=== PATIENT | female | born 1930 | race Caucasian/White ===

== ENCOUNTER 2017-07-18 15:00 | Inpatient (IN) | payer OTHER ==
[~2017-07-18] VITALS: Ht 160 cm; Wt 70.3 kg
[~2017-07-18 15:00] MED LIST: APAP650 PO; BAYER CHEWABLE81 MG PO; CALCIUM 500 +1 EAC6 PO; CARVEDILOL6.25 MG PO; COREG12.5 MG PO; FISH OIL 1,001000 M2 PO; LOSARTAN POTASS50 MG PO; NORVASC5 MG PO; PRADAXA150 MG PO; PRILOSEC 20 MG20 MG PO; SERTRALINE HCL50 MG PO; SIMVASTATIN40 MG PO
[2017-07-18 15:14] VITALS: BP 171/108
[2017-07-18 15:54] LABS: ABSOLUTE BASOPHILS 0.1 thou/uL (0.0-0.2); ABSOLUTE EOSINOPHILS 0.2 thou/uL (0.0-0.7); ABSOLUTE LYMPHOCYTES 1.9 thou/uL (0.8-5.3); ABSOLUTE MONOCYTES 0.8 thou/uL (0.0-1.2); ABSOLUTE NEUTROPHILS 3.8 thou/uL (1.6-8.1); BASOPHILS 0.8 %; EOSINOPHILS 3.3 %; HEMATOCRIT 42.9 % (37.0-47.0); HEMOGLOBIN 14.1 gm/dL (12.0-15.0); LYMPHOCYTES 27.8 %; MCH 30.5 pg (26.0-34.0); MCHC 32.8 g/dL (28.0-37.0); MCV 93.2 fL (80.0-100.0); MONOCYTES 11.4 %; MPV 10.1 fl. (7.2-11.1); NUCLEATED RBCS 0 /100WBC; PLATELET COUNT* 182 thou/uL (150-400); POLYS 56.7 %; RDW-CV 14.6 % (10.5-14.5); WBC 6.7 thou/uL (4.0-11.0)
[2017-07-18 15:56] LABS: INR 1.3; PROTIME 12.7 Seconds (9.20-11.50)
[2017-07-18 15:59] LABS: URINE BILIRUBIN NEGATIVE (Negative); URINE BLOOD 3+ (Negative); URINE CLARITY CLEAR; URINE COLOR YELLOW; URINE GLUCOSE-RANDOM NEGATIVE (Negative); URINE KETONES NEGATIVE (Negative); URINE LEUKOCYTES-REFLEX NEGATIVE (Negative); URINE NITRITE-REFLEX NEGATIVE (Negative); URINE PROTEIN NEGATIVE (Negative); URINE UROBILINOGEN 0.2 E.U./dl (0.2-1.0)
[2017-07-18 16:06] LABS: BACTERIA-REFLEX None Seen /HPF (None Seen); CASTS None Seen /LPF (None Seen); CRYSTALS None Seen /LPF (None Seen); SQUAMOUS 4-10 Moderate /LPF (0-3); URINE WBC-REFLEX None Seen /HPF (0-5)
[2017-07-18 17:23] LABS: ANION GAP 8 mmol/L (7-16); BUN 17 mg/dL (7-18); CALCIUM 9.6 mg/dL (8.5-10.1); CHLORIDE 104 mmol/L (98-107); CO2 27 mmol/L (21-32); CREATININE 0.8 mg/dL (0.6-1.3); GLUCOSE 112 mg/dL (70-99); POTASSIUM 3.9 mmol/L (3.5-5.1); SODIUM 139 mmol/L (136-145)
[2017-07-18 17:33] LABS: ALBUMIN 3.8 g/dL (3.4-5.0); ALKALINE PHOSPHATASE 80 U/L (46-116); LIPASE 74 U/L (73-393); NT-PRO BRAIN NAT PEPTIDE 2113 pg/mL (<300); SGOT 21 U/L (15-37); SGPT 22 U/L (30-65); TOTAL BILIRUBIN 0.7 mg/dL (<0.1-1.0); TOTAL PROTEIN 7.3 g/dL (6.4-8.2); TROPONIN-I LEVEL <0.06 ng/mL (<0.06)
[2017-07-18 19:46] VITALS: BP 138/75
[2017-07-18 20:00] VITALS: BP 149/82
[2017-07-18] MEDS ORDERED: METFORMIN HCL500 MG PO (20:52)
[2017-07-19 00:24] VITALS: BP 150/85
[2017-07-19 08:45] VITALS: BP 170/92
--- NOTE | 2017-07-19 11:20 | EKG ---
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
[2017-07-19 12:00] VITALS: BP 147/85
--- NOTE | 2017-07-19 15:42 | 2DMMODE ---
[place] [address] 2 D/M-MODE ECHOCARDIOGRAM Name: TRA PARKER Room: [address] IN [facility]#: [id number] Admission: 07/18/17 Attend Phys: Stormy Grace, Discharge: Date of : [birth year] Date of Service: 07/19/17 1541 Report #: [id number] THIS REPORT FOR: //name// APPROVED REPORT Study performed: 07/19/2017 13:58:37 EXAM: Comprehensive 2D, Doppler, and color-flow Echocardiogram Patient Location: In-Patient Room #: 218 Status: routine BSA: 1.73 HR: 66 bpm BP: 150/85 mmHg Rhythm: NSR Other Information Study Quality: Good Indications Atrial Fibrillation 2D Dimensions LVEF(%): 73.08 (>50%) IVSd: 11.37 (7-11mm) LVOT Diam: 18.02 (18-24mm) LVDd: 37.66 mm PWd: 10.45 (7-11mm) Ascending Ao: 32.44 (22-36mm) LVDs: 22.06 (25-40mm) Aortic Root: 29.17 mm Taylor's LVEF: 73.08 % Volumes Left Atrial Volume (Systole) LA ESV Index: 44.00 mL/m2 Aortic Valve AoV Peak Morgan.: 1.17 m/s AO Peak Gr.: 5.51 mmHg LVOT Max P.42 mmHg AO Mean Gr.: 2.95 mmHg LVOT Mean P.41 mmHg LVOT Max V: 0.92 m/s AO V2 VTI: 24.48 cm LVOT Mean V: 0.54 m/s RICO (VTI): 1.83 cm2 LVOT V1 VTI: 17.60 cm Mitral Valve MV Decel. Time: 105.81 [place] [address] 2 D/M-MODE ECHOCARDIOGRAM Name: TRA PARKER Room: [address] IN [facility]#: [id number] Admission: 07/18/17 Attend Phys: Stormy Grace, Discharge: Date of : [birth year] Date of Service: 07/19/17 1541 Report #: [id number] MV PHT: 30.68 ms MVA (PHT): 7.17 cm2 TDI Medial E' Morgan.: 0.09 m/s Lateral E' Morgan.: 0.11 m/s Pulmonary Valve PV Peak Morgan.: 0.74 m/s PV Peak Gr.: 2.20 mmHg Tricuspid Valve TR Peak Gr.: 29.45 mmHg RVSP: 34.00 mmHg Left Ventricle The left ventricle is normal size. There is normal LV segmental wall motion. There is normal left ventricular wall thickness. Left ventricular systolic function is normal. The left ventricular ejection fraction is within the normal range. LVEF is 60-65%. This study is not technically sufficient to allow evaluation of the LV diastolic function due to atrial fibrillation. Right Ventricle Right ventricle is mildly dilated. Right ventricle is mildly hypokinetic. Atria Left atrium is moderately dilated. Right atrium is mildly dilated. Aortic Valve Mild aortic valve sclerosis. No aortic regurgitation is present. There is no aortic valvular stenosis. Mitral Valve The mitral valve is normal in structure. Moderate mitral regurgitation. No evidence of mitral valve stenosis. Tricuspid Valve The tricuspid valve is normal in structure. Mild tricuspid regurgitation. The RVSP is 40 mmHg. Pulmonic Valve The pulmonary valve is normal in structure. Trace pulmonic regurgitation[place] [address] 2 D/M-MODE ECHOCARDIOGRAM Name: TRA PARKER Room: [address] IN [facility]#: [id number] Admission: 07/18/17 Attend Phys: Stormy Grace, Discharge: Date of : [birth year] Date of Service: 07/19/17 1541 Report #: [id number] The aortic root is normal in size. IVC is normal in size and collapses with >50% inspiration Pericardium There is no pericardial effusion. <Conclusion> LVEF is 60-65%. Right ventricle is mildly dilated. Left atrium is moderately dilated. Right atrium is mildly dilated. Mild aortic valve sclerosis. Moderate mitral regurgitation. Mild tricuspid regurgitation. The RVSP is 40 mmHg. <ELECTRONICALLY SIGNED> By: hKris Bunn MD, FACC 07/19/17 1541 1541 154 Khris Bunn MD, FACC /INF
[2017-07-19 16:00] VITALS: BP 166/95
[2017-07-19 20:00] VITALS: BP 159/85
[2017-07-20] VITALS: BP 127/80
[2017-07-20 02:10] LABS: GLYCOHEMOGLOBIN (HGB A1C) 5.8 % (4.8-5.6)
[2017-07-20 04:38] VITALS: BP 134/80
[2017-07-20 05:35] LABS: CHOLESTEROL 123 mg/dL (<200); HDL CHOLESTEROL 87 mg/dL (>40); LDL CHOLESTEROL 24 mg/dL (<100); TC:HDL 1.4 Ratio (Not establshd); TRIGLYCERIDE 63 mg/dL (<150); VLDL 13 mg/dL (<40)
[2017-07-20 05:57] LABS: SERUM ASSESSMENT Clear
[2017-07-20 07:54] VITALS: BP 142/86
[2017-07-20 10:03] VITALS: BP 142/86
[2017-07-20] MEDS ORDERED: ASPIR 8181 MG PO ×2 (10:53)
== END 2017-07-20 11:25 | disposition home or self-care (01) | DRG 309 ==
LOC: M.ERS 15:00 → M.2W 17:43 → M.TBA-ER 17:43 → M.2W 19:50
PROVIDERS: Emergency Medicine; Internal Medicine; ADMIT Internal Medicine
DX: I48.91 Unspecified atrial fibrillation (principal); I16.1 Hypertensive emergency; M48.00 Spinal stenosis, site unspecified; E11.9 Type 2 diabetes mellitus without complications; I69.322 Dysarthria following cerebral infarction; Z79.01 Long term (current) use of anticoagulants; Z79.82 Long term (current) use of aspirin; Z79.899 Other long term (current) drug therapy; Z98.890 Other specified postprocedural states

== ENCOUNTER 2017-07-20 16:48 | Inpatient (IN) | payer OTHER ==
[~2017-07-20] VITALS: Ht 160 cm; Wt 65.2 kg
[~2017-07-20 16:48] MED LIST changes: +ASPIR 8181 MG PO; +METFORMIN HCL500 MG PO
[2017-07-20 16:49] VITALS: BP 148/91
[2017-07-20 17:29] LABS: ABSOLUTE EOSINOPHILS 0.1 thou/uL (0.0-0.7); ABSOLUTE LYMPHOCYTES 1.4 thou/uL (0.8-5.3); ABSOLUTE MONOCYTES 0.8 thou/uL (0.0-1.2); BASOPHILS 0.5 %; HEMATOCRIT 45.7 % (37.0-47.0); HEMOGLOBIN 14.9 gm/dL (12.0-15.0); LYMPHOCYTES 18.5 %; MCH 30.3 pg (26.0-34.0); MCHC 32.6 g/dL (28.0-37.0); MONOCYTES 11.3 %; MPV 10.1 fl. (7.2-11.1); NUCLEATED RBCS 0 /100WBC; PLATELET COUNT* 183 thou/uL (150-400); POLYS 67.7 %; RBC 4.92 mil/uL (4.20-5.00); RDW-CV 14.4 % (10.5-14.5); WBC 7.3 thou/uL (4.0-11.0)
[2017-07-20 17:37] LABS: INR 1.4; PROTIME 13.3 Seconds (9.20-11.50)
[2017-07-20 17:38] LABS: ANION GAP 8 mmol/L (7-16); BUN 18 mg/dL (7-18); CHLORIDE 101 mmol/L (98-107); CO2 27 mmol/L (21-32); CREATININE 0.9 mg/dL (0.6-1.3); GLUCOSE 131 mg/dL (70-99); SODIUM 136 mmol/L (136-145)
[2017-07-20 17:45] LABS: ALBUMIN 3.7 g/dL (3.4-5.0); ALKALINE PHOSPHATASE 87 U/L (46-116); SGOT 18 U/L (15-37); SGPT 20 U/L (30-65); TOTAL BILIRUBIN 0.6 mg/dL (<0.1-1.0); TOTAL PROTEIN 7.2 g/dL (6.4-8.2); TROPONIN-I LEVEL <0.06 ng/mL (<0.06)
[2017-07-20 18:42] VITALS: BP 133/95
[2017-07-20 20:00] VITALS: BP 132/70
[2017-07-21] VITALS: BP 144/81
[2017-07-21 03:58] VITALS: BP 142/76
[2017-07-21 08:00] VITALS: BP 154/99
--- NOTE | 2017-07-21 10:33 | EKG ---
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1930 Requested By: Adam Constantino Order Number: [id number] MD: Khris Bunn Measurements Intervals [place] Rate: 84 P: [place]: QRS: 47 QRSD: 138 T: -37 QT: 386 QTc: 457 Interpretive Statements Atrial fibrillation Right bundle branch block Baseline wander in lead(s) V2,V3 Compared to ECG 07/18/2017 15:45:36 No significant changes Electronically Signed On 07-21-2017 10:32:59 CDT by Khris Bunn [email or web address] <ELECTRONICALLY SIGNED> By: Khris Bunn MD, [facility] 07/21/17 1032 1655 1655 Khris Bunn MD, [facility] /EPI
[2017-07-21 12:00] VITALS: BP 115/70
[2017-07-21 16:00] VITALS: BP 103/67
[2017-07-21 20:08] VITALS: BP 109/72
[2017-07-22] VITALS: BP 130/86
[2017-07-22 03:30] VITALS: BP 157/85
[2017-07-22 08:00] VITALS: BP 116/69
[2017-07-22 11:03] VITALS: BP 122/72
--- NOTE | 2017-07-22 13:30 | CARDNUC ---
[place] [address] CARDIAC NUCLEAR IMAGING REPORT Name: TRA PARKER Room: [address] IN [facility]#: [id number] Admission: 07/20/17 Attend Phys: Pro Kiser Discharge: Date of : [birth year] Date of Service: 07/22/17 1330 Report #: [id number] THIS REPORT FOR: //name// APPROVED REPORT Study performed: 07/21/2017 14:21:00 Indication: Atrial Fibrillation Patient Location: In-Patient Room #: 218 Stress Tech: Jen Hawkins Stress Nurse: Amber Garcia RN Ht: 52 ft 12 in Wt: 145 lbs BSA: 9.02 m2 BMI: 0.00 Medical History Medical History: a fib, hyperlipidemia, hypertension, diabetes Medications: amlodipine, aspirin, losartan, metoprolol, atorvastatin, pradaxa Allergies: naprosyn Cardiac Risk Factors: age, hyperlipidemia, hypertension, diabetes, family hx Previous Cardiac Procedures: none Exercise History: Sedentary Meds Held (24 hrs): metoprolol Resting Data Rest SPECT myocardial perfusion imaging was performed in supine position 30 minutes following the intravenous injection of 10.3 mCi of Tc-99m Sestamibi. Time of rest injection: 08:10 The images were gated to evaluate regional wall motion and calculate left ventricular ejection fraction. Administration Route: IV Administration Site: Left Wrist Pharmacologic Stress Pharmacologic stress test was performed by injecting Regadenoson 0.4 mg IV push over 10-15 seconds immediately followed by the intravenous injection of 36.0 mCi of Tc-99m Sestamibi. Time of stress injection: 09:40 Administration Route: IV Administration Site: [place] [address] CARDIAC NUCLEAR IMAGING REPORT Name: TRA PARKER Room: [address] IN ..#: [id number] Admission: 07/20/17 Attend Phys: Pro Kiser Discharge: Date of : [birth year] Date of Service: 07/22/17 1330 Report #: [id number] Heart Rate at time of stress injection: 128 bpm. Gated Stress SPECT was performed 40 minutes after stress injection. The images were gated to evaluate regional wall motion and calculate left ventricular ejection fraction. Prone imaging was performed. Stress Test Details Stress Test: Pharmacologic stress testing performed using 0.4 mg of regadenoson per 5 mL given IV over 10 seconds. Reason for pharmacologic stress test: physical limitation. Reversal agent Aminophyline 100 mg, given intravenously for nausea. HR Resting HR: 79 bpm Max Heart Rate (APMHR): 133 bpm Max HR Achieved: 128 bpm Target HR (85% APMHR): 113 bpm % of APMHR: 96 Recovery HR: 89 bpm BP Resting BP: 121/85 mmHg Max BP: 139/63 mmHg ECG Resting ECG: Sinus Rhythm, RBBB Stress ECG: Sinus Rhythm, RBBB ST Change: None Arrhythmia: None Recovery ECG: Sinus Rhythm, RBBB Recovery ST Change: None Recovery Arrhythmia: None Clinical Reason for Termination: Completed protocol Exercise duration: 0 min sec Exercise capacity: 1 METs Functional Aerobic Impairment 96% The patient had no significant symptoms with Lexiscan infusion. Stress ECG Conclusion The baseline 12-lead electrocardiogram showed sinus rhythm with right bundle-branch block. EKGs obtained during and post Lexiscan infusion showed sinus rhythm with right bundle-branch block and no significant ST or T wave changes when compared to baseline. There were [place] [address] CARDIAC NUCLEAR IMAGING REPORT Name: TRA PARKER Room: [address]#: [id number] Admission: 07/20/17 Attend Phys: Pro Kiser Discharge: Date of : [birth year] Date of Service: 07/22/17 1330 Report #: [id number] Study Quality Study: Good Artifact: No artifact Study Data At rest, the left ventricular ejection fraction was 74%.. Post stress, the left ventricular ejection was 79%.. TID = 1.02. Perfusion Normal left ventricular perfusion. Wall Motion Normal left ventricular wall motion. Nuclear Conclusion ECG Findings: negative for ischemia Clinical Findings: negative for ischemia Nuclear Findings: negative for ischemia Exercise Capacity: not assessed Left Ventricular Function: normal Risk Study: low Myocardial perfusion images show no defect to suggest infarct or ischemia. Left ventricular systolic function is normal on gated studies. This is a low risk study. <Conclusion> The baseline 12-lead electrocardiogram showed sinus rhythm with right bundle-branch block. EKGs obtained during and post Lexiscan infusion showed sinus rhythm with right bundle-branch block and no significant ST or T wave changes when compared to baseline. There were no stress-induced arrhythmias. <ELECTRONICALLY SIGNED> By: Florencio Ruby MD, FACC 07/22/17 1330 29 29 Florencio Ruby MD, FACC /INF
[2017-07-22 15:52] VITALS: BP 101/66
[2017-07-22 20:00] VITALS: BP 104/62
[2017-07-23] VITALS: BP 130/82
[2017-07-23 04:00] VITALS: BP 122/88
[2017-07-23 08:00] VITALS: BP 133/81
[2017-07-23] MEDS ORDERED: VITAMIN B-12500 MCG PO ×2 (09:15)
[2017-07-23 09:41] VITALS: BP 133/81
[2017-07-23 09:48] VITALS: BP 133/81
--- NOTE | 2017-07-28 14:13 | CON ---
[address] [address] CONSULTATION Name: TRA PARKER Room: [address] IN M.R.#: [id number] Admission: 07/20/17 Attend Phys: Chaparrita Miranda Discharge: 07/23/17 Date of : [birth year] Report #: [id number] THIS REPORT FOR: //name// CC: Russell Kiser DATE OF SERVICE: 07/21/2017 HISTORY OF PRESENT ILLNESS: The patient is an 86-year-old single white female who I was asked to see in the hospital today because of atrial fibrillation. As you may recall, the patient is an 86-year-old single white female who has a long history of atrial fibrillation. She previously was cardioverted at [facility]. However, she developed persistent atrial fibrillation and decided to aim for rate control with anticoagulation. She first saw Dr. Carr here at [facility] back in 2013 with elevated blood pressure and atrial fibrillation. At that time, her blood pressure is noted to be elevated. Her cardiac workup included an echocardiogram at that time that showed normal left ventricular function. She was told in the past that she had mitral valve prolapse. The patient was actually just admitted to [facility] 3 days ago. She was brought to the Emergency Room with some slurred speech and numbness of the left side of her face. She has fallen a couple times usually because of poor balance. She denied any blurred vision, difficulty swallowing, weakness of an arm or leg. She is felt to have a TIA at that time. She has been taking her Pradaxa. The patient was evaluated and sent home yesterday. However, she got home last night. Her boyfriend had difficulty awaking her. She also again had some slurred speech. She was again admitted last night. The patient did note some lightheadedness and confusion. She had taken oxycodone in the morning. However, she has no history of myocardial infarction or chest pain. She denies any shortness of breath. She notes her heart beating irregular occasionally, but she has had no syncope or edema. She has had no bleeding problems. PAST MEDICAL HISTORY: Cervical spine surgery, knee arthroplasty at . She has a history of hypertension, diabetes, hyperlipidemia. MEDICATIONS: Include Lipitor, losartan, metformin, metoprolol, omeprazole, Pradaxa and Zoloft. ALLERGIES: She has intolerance to NAPROSYN. FAMILY HISTORY: There is family history of according to the old records congestive heart failure. SOCIAL HISTORY: She has been once, currently lives with a friend at [place] week ago. She never smoked, [place] [address] CONSULTATION Name: TRA PARKER Room: [address] IN M.R.#: [id number] Admission: 07/20/17 Attend Phys: Chaparrita Miranda Discharge: 07/23/17 Date of : [birth year] Report #: [id number] REVIEW OF SYSTEMS: She has no history of previous stroke, asthma, peptic ulcer disease, liver disease, kidney disease, cancer. She has arthritis. No chronic skin condition. She uses a walker. PHYSICAL EXAMINATION: GENERAL: Revealed an elderly female lying in bed. She appeared in no distress. VITAL SIGNS: She had a blood pressure of 140/70, pulse is 80 and irregular. She is afebrile. HEENT: She is anicteric, conjunctiva pink. Mucous membranes appear dry. NECK: Veins nondistended. CHEST: Clear to auscultation. CARDIOVASCULAR: Irregular rhythm, grade 2 systolic ejection murmur. ABDOMEN: Soft. EXTREMITIES: Had no edema. Dorsalis pedis pulse 1+ bilaterally. SKIN: Cool and dry. NEUROLOGIC: Nonfocal. LABORATORY DATA: ECG showed atrial fibrillation with a right bundle branch block. Her workup recently, she had a recent chest x-ray that showed normal heart size, clear lung garcia except for some minor atelectasis. She had an MRI of the head without contrast that showed no acute abnormality, only atrophy. She had MRA of the carotid arteries that showed no significant stenosis. She had a previous nuclear stress test back in 2005 that showed no ischemia or infarction. Her lab work, sodium 136, creatinine 0.9. Liver function studies were normal. Troponin 0.06. BNP 2113. Cholesterol 123, triglyceride 63, HDL 87, LDL was only 24. TSH 2.1. Her white blood cell count 7.3, hemoglobin 14.9. IMPRESSION AND RECOMMENDATIONS: 1. Atrial fibrillation. Rate controlled with a beta rolando. The patient has been anticoagulated with Pradaxa. 2. Hypertension. The patient is on an ARB and beta rolando. 3. Diabetes. 4. Hyperlipidemia. The patient is on a statin drug. 5. Slurred speech. Possibly related to narcotics. 6. History of falls. If the patient continues to fall, I will consider the patient to be high risk for bleeding and we will consider discontinuing Pradaxa. 7. Degenerative joint disease. The patient has been taking narcotics. <ELECTRONICALLY SIGNED> By: Khris Bunn MD, [facility] 07/28/17 1413 1243 [id number] Bunn MD, FACC /nt
--- NOTE | 2017-07-30 08:15 | CON ---
[facility] [address] [place] [address] CONSULTATION Name: TRA PARKER Room: [address] IN M.R.#: [id number] Admission: 07/20/17 Attend Phys: Chaparrita Miranda Discharge: 07/23/17 Date of : [birth year] Report #: [id number] THIS REPORT FOR: //name// CC: KAREL physician/PCP Pro Kiser DATE OF SERVICE: 07/20/2017 HISTORY OF PRESENT ILLNESS: This is an 86-year-old female patient who was admitted with an episode of speech difficulty. The history is not very clear and I talked to the patient's family. I am not sure whether she was confused or whether she just had speech difficulty. She ate some ice cream and she became better. She had shown some confusion after taking hydrocodone for neck pain. She had neck pain for a long time. She had a surgery for it and she was doing well, but has started becoming worse recently. She does drink alcohol every day, but has not been drinking any alcohol in the last few days. She was in the hospital with similar symptoms and MRI and MRA were negative at that time and echocardiogram was okay. REVIEW OF SYSTEMS: Indicate that she has neck pain. She had some stenosis of the spine. She is a diabetic, but only thing she takes is metformin. She is on blood thinner and she has recently started taking hydrocodone. She is losing some memory for a long time. She had some facial numbness at one time. Intermittently, she feels dizzy some time. REVIEW OF SYSTEMS: Her 14-point review of system was carried out and was otherwise noncontributory. She was not complaining of any eyes, ENT, cardiac, respiratory, GI, , constitutional, dermatological, hematological, psychiatric, throat, allergic symptom associated with present symptomatology. She did have some neck pain and it has become worse. PAST MEDICAL HISTORY: Positive for neck pain. FAMILY HISTORY: Negative for any early age stroke. SOCIAL HISTORY: She was drinking about 1 or 2 alcoholic drink a day, but has stopped recently because she has been on pain medication. PHYSICAL EXAMINATION: Indicate that she is alert, responsive and oriented, able to follow simple and complex command. Her speech, concentration, fund of knowledge and memory is at her baseline. Cranial nerve examination 2-12 was mostly unremarkable. Strength, sensation, reflexes and tone was symmetrical. There is no meningeal sign in this patient. Does not have any cerebellar sign. I could not look at the patient's fundus. Tone looks symmetrical. She is reasonably well-developed individual. She does [place] [address] CONSULTATION Name: KEITHTRA M Room: [address] IN M.R.#: [id number] Admission: 07/20/17 Attend Phys: Chaparrita Miranda Discharge: 07/23/17 Date of : [birth year] Report #: [id number] features of eyes, ears and face. Her vision and hearing looks adequate. Cardiac examinations appear noncontributory. No respiratory difficulty or rhonchi. She has no thyroid mass. Pulses are somewhat difficult to feel. She has no edema, cyanosis or jaundice. Blood pressure is 133/95, respirations 17, pulse is 82, and temperature is 97.8. LABORATORY DATA: Indicated normal white count at 7.3. Normal sodium was 136. Her CT scan of the head was reviewed and that showed mildly prominent ventricles. IMPRESSION: Episode of confusion versus speech difficulty with recent MRI and MRA being negative. It may be reaction to the patient's hydrocodone. She used to drink alcohol and she stopped recently. That may be a problem. Hypoglycemia was considered, but that is considered as unlikely because she is only on metformin, which typically does not cause hypoglycemia. Medication reaction need to be considered. Because of recurrent I think we might do somewhat more workup. RECOMMENDATIONS: 1. To complete the workup, we will repeat the MRI to make sure original MRI did not miss any stroke. I will go ahead and do an MRI of the C-spine to see why her pain is worse. 2. She should stop drinking alcohol. 3. We will put her on thiamine. 4. She may have to take some other less stronger pain medication. 5. I will get an EEG done. 6. I will not be inclined to change her medication until the cause is determined. Thank you very much for this referral and we will follow this patient along with you. <ELECTRONICALLY SIGNED> By: Teddy Mercer MD 07/30/17 0815 25 [id number] Mercer MD /nt
--- NOTE | 2017-07-30 08:15 | EEG ---
[address] [address] EEG STUDY REPORT Name: KEITHTRA Jolly Room: [address]#: [id number] Admission: 07/20/17 Attend Phys: Chaparrita Miranda Discharge: 07/23/17 Date of : [birth year] Report #: [id number] THIS REPORT FOR: //name// CC: Russell Kiser DATE OF SERVICE: 07/21/2017 This patient is being evaluated for dizziness and speech difficulty. EEG was done by placing the electrode by standard 10-20 system of electrode placement. Both referential and sequential montages were used for recording. Background activity in this patient's EEG is about 8-9 Hz and 30 microvolts. It is a symmetrical activity. The patient became drowsy and went to sleep and that is associated with bilaterally symmetrical sleep spindle and vertex sharp waves. Throughout the record, no active epileptiform activity was noticed. IMPRESSION: This patient's EEG is intermixed with theta range slowing on both sides. That is a nonspecific abnormality, which can occur with dementia, encephalopathy, effect of psychotropic medication. No active epileptiform activity was noticed. Thank you very much for this referral. <ELECTRONICALLY SIGNED> By: Teddy Mercer MD 07/30/17 0815 1652 1745Teddy Mercer MD /richi
== END 2017-07-23 11:32 | disposition home health service (06) | DRG 100 ==
LOC: M.ERS 16:48 → M.2W 17:51 → M.TBA-ER 17:51 → M.2W 17:51
PROVIDERS: Emergency Medicine; ADMIT Internal Medicine
DX: R56.9 Unspecified convulsions (principal); G92 Toxic encephalopathy; G95.89 Other specified diseases of spinal cord; I48.91 Unspecified atrial fibrillation; I69.322 Dysarthria following cerebral infarction; T40.2X5A Adverse effect of other opioids, initial encounter; I10 Essential (primary) hypertension; E11.9 Type 2 diabetes mellitus without complications; E78.5 Hyperlipidemia, unspecified; M19.90 Unspecified osteoarthritis, unspecified site; M48.02 Spinal stenosis, cervical region; E53.8 Deficiency of other specified B group vitamins; G31.84 Mild cognitive impairment of uncertain or unknown etiology; Z79.82 Long term (current) use of aspirin; Z79.01 Long term (current) use of anticoagulants; Z91.81 History of falling; Z79.899 Other long term (current) drug therapy; Z82.49 Family history of ischemic heart disease and other diseases of the circulatory system; Y92.89 Other specified places as the place of occurrence of the external cause

== ENCOUNTER → 2019-02-03 | Outpatient (CLI) | payer OTHER ==
[~2019-02-03] MED LIST changes: +BENICAR40 MG PO; +DILTIAZEM 24HR180 M1 PO; +ELIQUIS5 MG PO; +LASIX 20 MG TAB20 MG PO; +LOPRESSOR50 MG PO; +OCUVITE TABLET1 EAC1 PO; +OYSTER SHELL C500 MG PO; +VITAMIN B-12500 MCG PO; +VITAMIN D22000 UNIT PO
== END ==
LOC: M.RAD 08:53
DX: I51.7 Cardiomegaly (principal)

== ENCOUNTER 2019-02-04 19:56 | Inpatient (IN) | payer OTHER ==
[~2019-02-04] VITALS: Ht 162.6 cm; Wt 76.2 kg
[~2019-02-04 19:56] MED LIST changes: -APAP650 PO; -BENICAR40 MG PO; -DILTIAZEM 24HR180 M1 PO; -ELIQUIS5 MG PO; -LASIX 20 MG TAB20 MG PO; -LOPRESSOR50 MG PO; -OCUVITE TABLET1 EAC1 PO; -OYSTER SHELL C500 MG PO; -VITAMIN D22000 UNIT PO
[2019-02-04 19:59] VITALS: BP 128/67
[2019-02-04] MEDS ORDERED: OCUVITE TABLET1 EAC1 PO (20:14)
[2019-02-04] MEDS ORDERED: VITAMIN D22000 UNIT PO (20:15)
[2019-02-04] MEDS ORDERED: LOPRESSOR50 MG PO (20:18)
[2019-02-04] MEDS ORDERED: BENICAR40 MG PO (20:19)
[2019-02-04] MEDS ORDERED: OYSTER SHELL C500 MG PO (20:20)
[2019-02-04 20:49] LABS: ABSOLUTE LYMPHOCYTES 0.5 thou/uL (0.8-5.3); ABSOLUTE MONOCYTES 0.8 thou/uL (0.0-1.2); ABSOLUTE NEUTROPHILS 6.6 thou/uL (1.6-8.1); BASOPHILS 0.2 %; EOSINOPHILS 0.1 %; HEMATOCRIT 42.2 % (37.0-47.0); LYMPHOCYTES 6.1 %; MCH 28.9 pg (26.0-34.0); MCHC 33.1 g/dL (28.0-37.0); MCV 87.2 fL (80.0-100.0); MONOCYTES 10.7 %; MPV 9.6 fl. (7.2-11.1); NUCLEATED RBCS 0 /100WBC; PLATELET COUNT* 182 thou/uL (150-400); POLYS 82.9 %; RBC 4.84 mil/uL (4.20-5.00); RDW-CV 14.4 % (10.5-14.5); WBC 7.9 thou/uL (4.0-11.0)
[2019-02-04 20:57] LABS: CALCIUM 9.5 mg/dL (8.5-10.1); CREATININE 0.8 mg/dL (0.6-1.3); POTASSIUM 4.5 mmol/L (3.5-5.1)
[2019-02-04 21:01] LABS: ALBUMIN 3.4 g/dL (3.4-5.0); TOTAL BILIRUBIN 0.4 mg/dL (<0.1-1.0); TOTAL PROTEIN 7.1 g/dL (6.4-8.2)
[2019-02-05] VITALS (7 sets, daily range): BP systolic 103–130; BP diastolic 58–74
--- NOTE | 2019-02-05 07:43 | NUR ---
PATIENT PROGRESSING TOWARDS GOALS: HR CONTROLLED ON CARDIZEM GTT. PATIENT REMAINED ON BIPAP SINCE ADMISSION, TOLERATING WELL. DENIES PAIN AND DISCOMFORT. CALL LIGHT WITHIN REACH
[2019-02-05 14:17] LABS: INFLUENZA A ANTIGEN Positive (Negative); INFLUENZA B ANTIGEN Negative (Negative)
--- NOTE | 2019-02-05 19:40 | NUR ---
ASSUMED PT CARE AT 0730, FULL ASSESMENT DONE CHARTED. PT A/O X4, CREEK, PLEASANT, DENIES PAIN. PT ON BIPAP THIS AM, TRIALED ON 4L NC, PTS O2 SAT DOWN TO 86%, PT PLACED BACK ON BIPAP UNTIL LUNCH. HIGH FLOW NC STARTED AT 8L, PT TOLERATED WELL THROUGH THE SHIFT AND TITRATED DOWN TO 6L. LASIX GIVEN, PT DIURESNG WELL. FLU A POSITIVE. ISOLATION PRECAUTIONS MAINTAINED. FALL PRECAUTIONS IN PLACE. CALL LIGHT IN REACH.
[2019-02-06] VITALS (8 sets, daily range): BP systolic 77–123; BP diastolic 44–73
--- NOTE | 2019-02-06 13:54 | NUR ---
MET WITH PT AND SPOKE WITH [facility] WHERE PT LIVES. PT STATES SHE IS NORMALLY INDEPENDENT WITH WALKER THERE. DID HAVE A FALL RECENTLY BUT SHE STATED IT WAS RELATED TO HER 'FLU.' PT ALSO USES A CANE SOME. [facility] IS DPOA, CALL PLACED TO HER BUT HAD TO LEAVE MESSAGE. PT HAS HAD HH IN THE PAST WITH [facility]. SHE HAS ALSO BEEN TO SNF IN THE PAST BUT COULDN'T REMEMBER NAME OF FACILITY. THERAPY ORDERED, WILL FOLLOW AND ASSIST WITH DC PLAN. PT WOULD LIKE TO BE ABLE TO RETURN TO HER [place] WITH HH. PER [facility], THEY WORK CLOSELY WITH [facility] AND [facility]. [facility] [phone] FAX [phone]
--- NOTE | 2019-02-06 14:34 | EKG ---
[place] [address] ELECTROCARDIOGRAM REPORT Name: TRA PARKER Room: [address] ADM IN M.R.#: [id number] Admission: 02/04/19 Attend Phys: Chaparrita Miranda Discharge: Date of : [birth year] Report #: [id number] THIS REPORT FOR: //name// 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1930 Requested By: Jorge Elias Order Number: [id number] MD: Florencio Ruby Measurements Intervals [place] Rate: 108 P: [place]: QRS: 52 QRSD: 130 T: -74 QT: 343 QTc: 460 Interpretive Statements Atrial fibrillation Right bundle branch block Nonspecific ST-T wave abnormality Baseline wander in lead(s) V3,V6 Compared to ECG 07/20/2017 16:55:54 Early repolarization now present Electronically Signed On 02-06-2019 14:33:51 [employer] by Florencio Ruby [email or web address] <ELECTRONICALLY SIGNED> By: Florencio Ruby MD, FACC 02/06/19 1433 58 58 Florencio Ruby MD, FACC /EPI
--- NOTE | 2019-02-06 16:56 | 2DMMODE ---
[place] [address] 2 D/M-MODE ECHOCARDIOGRAM Name: TRA PARKER Room: [address] IN [facility].#: [id number] Admission: 02/04/19 Attend Phys: Pro Kiser Discharge: Date of : [birth year] Date of Service: 02/06/19 1655 Report #: [id number] THIS REPORT FOR: //name// APPROVED REPORT Study performed: 02/06/2019 14:55:49 EXAM: Comprehensive 2D, Doppler, and color-flow Echocardiogram Patient Location: Bedside BSA: 1.77 HR: 97 bpm BP: 123/73 mmHg Other Information Study Quality: Fair Indications Atrial Fibrillation 2D Dimensions IVSd: 14.43 (7-11mm) LVOT Diam: 16.69 (18-24mm) LVDd: 34.95 mm PWd: 9.90 (7-11mm) Ascending Ao: 27.59 (22-36mm) LVDs: 28.10 (25-40mm) Aortic Root: 26.33 mm Volumes Left Atrial Volume (Systole) LA ESV Index: 28.50 mL/m2 Aortic Valve AoV Peak Morgan.: 1.22 m/s AO Peak Gr.: 5.92 mmHg LVOT Max P.08 mmHg AO Mean Gr.: 3.79 mmHg LVOT Mean P.27 mmHg LVOT Max V: 1.01 m/s AO V2 VTI: 19.14 cm LVOT Mean V: 0.71 m/s RICO (VTI): 2.48 cm2 LVOT V1 VTI: 21.69 cm Mitral Valve E/A Ratio: 3.98 MV Decel. Time: 145.04 ms MV E Max Morgan.: 1.01 m/s MV PHT: 42.06 ms MVA (PHT): 5.23 [place]2 [place] [address] 2 D/M-MODE ECHOCARDIOGRAM Name: TRA PARKER Room: [address] IN [facility]#: [id number] Admission: 02/04/19 Attend Phys: Pro Kiser Discharge: Date of : [birth year] Date of Service: 02/06/19 1655 Report #: [id number] TDI E/Lateral E': 8.42 E/Medial E': 9.18 Medial E' Morgan.: 0.11 m/s Lateral E' Morgan.: 0.12 m/s Pulmonary Valve PV Peak Morgan.: 1.21 m/s PV Peak Gr.: 5.82 mmHg Tricuspid Valve RAP Estimate: 20.00 mmHg TR Peak Gr.: 33.28 mmHg RVSP: 53.28 mmHg PA Pressure: 53.28 mmHg Left Ventricle The left ventricle is normal size. There is normal LV segmental wall motion. There is normal left ventricular wall thickness. Left ventricular systolic function is normal. The left ventricular ejection fraction is within the normal range. LVEF is 60-65%. This study is not technically sufficient to allow evaluation of the LV diastolic function due to atrial fibrillation. Right Ventricle The right ventricle is normal size. The right ventricular systolic function is normal. Atria Left atrium is mildly dilated. Right atrium is moderately dilated. Aortic Valve Mild aortic valve sclerosis. No aortic regurgitation is present. There is no aortic valvular stenosis. Mitral Valve The mitral valve is normal in structure. Mild mitral regurgitation. No evidence of mitral valve stenosis. Tricuspid Valve The tricuspid valve is normal in structure. Trace tricuspid regurgitation. Pulmonic Valve The pulmonary valve is normal in structure. There is no pulmon[place] [address] 2 D/M-MODE ECHOCARDIOGRAM Name: TRA PARKER Room: [address]#: [id number] Admission: 02/04/19 Attend Phys: Pro Kiser Discharge: Date of : [birth year] Date of Service: 02/06/19 1655 Report #: [id number] Great Vessels The aortic root is normal in size. IVC is dilated and collapses >50% with inspiration. Pericardium There is no pericardial effusion. <Conclusion> The left ventricle is normal size. There is normal left ventricular wall thickness. Left ventricular systolic function is normal. The left ventricular ejection fraction is within the normal range. LVEF is 60-65%. This study is not technically sufficient to allow evaluation of the LV diastolic function due to atrial fibrillation. The right ventricle is normal size. Left atrium is mildly dilated. Right atrium is moderately dilated. Mild aortic valve sclerosis. No aortic regurgitation is present. There is no aortic valvular stenosis. The mitral valve is normal in structure. Mild mitral regurgitation. The tricuspid valve is normal in structure. IVC is dilated and collapses >50% with inspiration. There is no pericardial effusion. There is normal LV segmental wall motion. <ELECTRONICALLY SIGNED> By: Td Stoll MD, FACC 02/06/191654 54 54 Td Stoll MD, FACC /INF
--- NOTE | 2019-02-06 19:08 | NUR ---
ASSUMED PT CARE AT 0730, FULL ASSESMENT DONE CHARTED. PT A/O X4, DENIES PAIN BUT IS SOA AT TIMES. PT REMIANS ON 6L HIGH FLOW NC. VERY COURSE LUNG SOUNDS. COUGHING UP THICK SPUTUME. REMAINS ON ISOLATION FOR FLU A. UP WITH ASSIST, WALKER, IS VERY WEAK, CANNOT GO FAR DISTANCES. BP LOW THIS AFTERNOON. ORDERS OBTAINED FOR FLUID BOLUS. PT UP TO CHAIR FOR MEALS. CALLS APPROPRIATLY FOR ASSISTANCE.
[2019-02-07] VITALS: BP 98/59
[2019-02-07 04:00] VITALS: BP 88/51
[2019-02-07 08:15] VITALS: BP 102/69
[2019-02-07 11:51] VITALS: BP 104/57
[2019-02-07 16:05] VITALS: BP 101/56
--- NOTE | 2019-02-07 19:57 | NUR ---
ASSUMED PT CARE AT 0730, FULL ASSESMENT DONE CHARTED. PT A/O X4, STATES SHE IS FEELING BETTER TODAY BUT IS STILL TIRED. PT ON 6L HIGH FLOW NC. UP WITH ASSIST, AFIB ON THE MONITOR. BP SOFT, APPROPRIATE, ASYMPTOMATIC. FALL PRECAUTIONS IN PLACE. ISOLATION MAINTAINED. REPORT GIVEN TO GABRIELLE CRUZ
[2019-02-07 20:00] VITALS: BP 94/57
[2019-02-07 23:55] LABS: URINE BILIRUBIN NEGATIVE (Negative); URINE BLOOD 1+ (Negative); URINE CLARITY CLEAR; URINE COLOR YELLOW; URINE GLUCOSE-RANDOM NEGATIVE (Negative); URINE KETONES NEGATIVE (Negative); URINE LEUKOCYTES-REFLEX NEGATIVE (Negative); URINE NITRITE-REFLEX NEGATIVE (Negative); URINE PROTEIN NEGATIVE (Negative); URINE SPECIFIC GRAVITY 1.015 (1.005-1.030); URINE UROBILINOGEN 0.2 E.U./dl (0.2-1.0)
[2019-02-08] VITALS: BP 104/59
[2019-02-08 01:24] LABS: CASTS None Seen /LPF (None Seen); SQUAMOUS 0-3 Few /LPF (0-3)
[2019-02-08 01:25] LABS: BACTERIA-REFLEX 1-9 Few /HPF (None Seen); CRYSTALS None Seen /LPF (None Seen); URINE RBC 0-2 Rare /HPF (0-2); URINE WBC-REFLEX None Seen /HPF (0-5)
[2019-02-08 04:00] VITALS: BP 99/58
[2019-02-08 06:36] LABS: CALCIUM 9.5 mg/dL (8.5-10.1); CREATININE 0.8 mg/dL (0.6-1.3)
[2019-02-08 07:25] VITALS: BP 131/68
--- NOTE | 2019-02-08 10:31 | CON ---
[address] [address] CONSULTATION Name: TRA PARKER Room: [address] IN ..#: [id number] Admission: 02/04/19 Attend Phys: Chaparrita Miranda Discharge: Date of : [birth year] Report #: [id number] THIS REPORT FOR: //name// CC: Corinne Kiser DATE OF SERVICE: 02/05/2019 CARDIOLOGY CONSULTATION HISTORY OF PRESENT ILLNESS: The patient is an 88-year-old female, who presented yesterday with alteration of consciousness and fall. She has been noted to have permanent atrial fibrillation, has rate controlled, and is on anticoagulation with a dabigatran. Since admission, she has returned to her normal state of consciousness. She has been treated with IV Cardizem for rate modulation. She has been placed on oral anticoagulation with Eliquis at 2.5 mg b.i.d. Additional medicines have included metformin, amlodipine, omeprazole, sertraline, and olmesartan as well as fish oil. PHYSICAL EXAMINATION: GENERAL: Demonstrates not acutely distressed elderly female with BiPAP in place, is breathing comfortably. VITAL SIGNS: Blood pressure is 120/70, pulse rate is 88 and irregularly irregular, respirations are 18 per minute. NECK: Jugular venous pressure is normal. CHEST: Reveals decreased breath sounds at the bases. CARDIAC: Reveals an irregularly irregular rhythm with a moderate ventricular response. ABDOMEN: Soft. EXTREMITIES: Well perfused. Chest radiograph demonstrates bibasilar density suggesting atelectasis rather than pneumonia. CT of the head revealed evidence for moderate cerebral atrophy. IMPRESSION: 1. Atrial fibrillation with currently moderate ventricular response; it was tachycardic on admission, but is controlled on current IV Cardizem. 2. Chronically anticoagulated with dabigatran; she is currently on Eliquis at 2.5 mg b.i.d. 3. Recent falling episode with alteration of consciousness. RECOMMENDATIONS: 1. Concur with current approach; I would plan to [place] [address] CONSULTATION Name: TRA PARKER Room: [address] IN [facility].#: [id number] Admission: 02/04/19 Attend Phys: Chaparrita Miranda Discharge: Date of : [birth year] Report #: [id number] diltiazem in an extended release preparation tomorrow. 2. We would continue oral anticoagulation with Eliquis at 2.5 mg b.i.d. <ELECTRONICALLY SIGNED> By: Td Stoll MD, FACC 02/08/19 1031 1312 2111Td Stoll MD, FACC /nt
[2019-02-08 12:34] VITALS: BP 106/67
[2019-02-08 16:47] VITALS: BP 131/73
--- NOTE | 2019-02-08 18:42 | NUR ---
RECEIVED REPORT. ASSUMED CARE OF PT AROUND 0730. PT A&O X4. VSS. HEALTHCARE TRANSLATOR IN PLACE TRACING AFIB WITH NO CHANGES THIS SHIFT. AM ASSESSMENT AND VITALS COMPLETED CHARTED. IV INTACT. MEDS PER EMAR. PT WITH PRODUCTIVE COUGH THIS SHIFT. UP TO BEDSIDE CHAIR SEVERAL TIMES, AND UP TO BEDSIDE COMMODE - BM NOTED. PT ABLE TO WORK WITH P.T., BUT STAMINA POOR. O2 TITRATED DOWN TO 4L PER NC, BUT PT SOA THIS EVENING AND O2 TURNED BACK UP TO 5L PER NC TO KEEP 02 SATS >90%. PT HAS DENIED PAIN THIS SHIFT. PT CURRENTLY SITTING UP IN BEDSIDE CHAIR WATCHING TV. CALL LIGHT IS WITHIN REACH. CHAIR ALARM IS ON. HOURLY ROUNDING PERFORMED.
[2019-02-08 19:50] VITALS: BP 116/69
[2019-02-09] VITALS: BP 106/58
[2019-02-09 04:00] VITALS: BP 141/66
--- NOTE | 2019-02-09 05:49 | NUR ---
VSS. ASSESSMENT COMPLETED CHARTED. SEE MAR. FALL PRECAUTIONS IN PLACE. HOURLY ROUNDING FOR SAFETY.
[2019-02-09 08:00] VITALS: BP 121/71
--- NOTE | 2019-02-09 12:28 | NUR ---
ASSUMED CARE OF PATIENT THIS AM AT 0730. PATIENT IS ALERT AND ORIENTED X 4. SHE DENIES PAIN AND DISCOMFORT. SHE C/O ONLY WEAKNESS. TELE SHOWS A FIB. PATIENT IS ON [address] FERNANDEZ IN PLANS TO DISCHARGE TO SNF THIS AFTERNOON. PATIENT IS UP IN THE CHAIR AND TOLERATING THE ACTIVITY WELL.
[2019-02-09] MEDS ORDERED: ELIQUIS5 MG PO (12:33)
[2019-02-09] MEDS ORDERED: DILTIAZEM 24HR180 M1 PO (12:33)
[2019-02-09 12:35] VITALS: BP 109/63
[2019-02-09] MEDS ORDERED: LASIX 20 MG TAB20 MG PO (12:39)
--- NOTE | 2019-02-09 14:16 | NUR ---
CONTINUE TO FOLLOW, REHAB EVAL'D PT AND WILL ACCEPT PENDING INSURANCE AUTH. DISCUSSED WITH PT AND DTR/CHINMAY OVER THE PHONE. EXPLAINED THAT IF INS. DIDN'T AUTH REHAB, WOULD NEED TO GO TO SNF. DISCUSSED OPTIONS AND GAVE DTR LIST TO CONSIDER. AWAIT AUTH
[2019-02-09 16:00] VITALS: BP 113/65
[2019-02-09 19:40] VITALS: BP 121/77
[2019-02-10 00:38] VITALS: BP 107/53
[2019-02-10 04:00] VITALS: BP 129/77
--- NOTE | 2019-02-10 05:00 | NUR ---
ASSESSMENT COMPLETED CHARTED. SEE fall PRECATUIONS IN PLACE. HOURLY ROUNDING FOR SAFETY. VSS.
[2019-02-10 08:00] VITALS: BP 104/69
[2019-02-10 11:59] VITALS: BP 101/62
--- NOTE | 2019-02-10 14:31 | NUR ---
CONTINUE TO FOLLOW, RECEIVED MESSAGE FROM REHAB LI[facility]ON THAT SHE WAS NOT ABLE TO VERIFY PT'S SIGEL INSURANCE IT CHANGED 1ST OF THE YEAR. CHECKED WITH PT'S DTR AND WITH PT. PT STATES SHE DIDN'T REMEMBER RECEIVING A CARD AND TRIED TO CALL YESTERDAY TO GET A NEW ONE. ASSISTED PT WITH CALLING [employer] AND AFTER AN HOUR ON THE PHONE, WAS ABLE TO VERIFY HER NEW PLAN AND INSURANCE. THAT INFO GIVEN TO RA/NATHENAB RIC AND SHE HAS SUBMITTED INSURANCE TO GET AUTH FOR REHAB. UPDATED DTR/CHINMAY AND GAVE INSURANCE INFO ALSO TO HER. DISCUSSED THAT IF INS WONT AUTH REHAB, WOULD HAVE TO CONSIDER SNF. HER CHOICE FOR THAT WOULD BE [place] OR [facility]. AWAIT REHAB ANSWER AND WILL FOLLOW
[2019-02-10 16:30] VITALS: BP 124/67
--- NOTE | 2019-02-10 17:27 | NUR ---
ASSUMED PT CARE REPORT RECEIVED FROM NURSE PT IS AOX4. ON 8 L NC. O2 SATURATION IS 94%. O2 TITRATED AT 1500 DOWN TO 5 L NC. O2 SATURATION IS 93%. PT DENIES SOA. PT TRANSFERS OUT OF BED TO CHAIR WITH ASSIST X1. TRACING AFIB ON EDUCATIONAL ADMINISTRATOR. RATE CONTROLLED. PT RECEIVED LASIX AND URINATED MULTIPLE TIMES THIS SHIFT. NO COMPLAINT OF PAIN . PT/OT WORKED WITH PT IN PRELUDE TO TRANSFER TO INPATIENT REHAB. CORPORATE SERVICES MANAGER ON BOARD. PT STILL NEDDS INSURANCE AUTHORIZATION PRIOR TO BE ACCEPTED TO INPATIENT REHAB. AWAITING FOR THAT AUTH. ACCUCHECK. IV LINE PATENT. BP MEDICATION NOT GIVEN THIS MORNING DUE TO BP BEING SOFT. CALL LIGHT AT REACH. WILL CONTINUE TO MONITOR PT
[2019-02-10 20:00] VITALS: BP 116/75
[2019-02-11] VITALS: BP 121/67
[2019-02-11 04:00] VITALS: BP 117/67
--- NOTE | 2019-02-11 05:13 | NUR ---
ASSESSMENT COMPLETED CHARTED. VSS. SEE MAR. PROGRESSING TOWARDS GOALS. FALL PRECAUTIONS IN PLACE. HOURLY ROUNDING FOR SAFETY.
[2019-02-11 07:51] VITALS: BP 131/79
--- NOTE | 2019-02-11 08:51 | NUR ---
ASSUMED CARE OF PT THIS AM AROUND 0715- STEAM SERVICE INSPECTOR IN PLACE ORDERED, TRACING A-FIB/RATE CONTROLLED- UPON ASSESSMENT PT NOTED TO BE RESTING IN BED- PT A&O X4- CONTIENT OF B/B- AX1 WITH TRANSFERS- COURSE LUNG SOUNDS WITH NOTED WHEEZING NOTED- WET/LOOSE PRODUCTIVE COUGH NOTED- VSS, O2 SAT 93% ON 4L VIA NC- ABD SOFT/ROUND/NON-TENDER, BS X4 QUADS- PT REPORTS BM THIS AM- IV NOTED TO LEFT FA INTACT AND SL- BS MONITORED ORDERED WITH PO METFORMIN PRESCRIBED- PT UP TO BED SIDE RECLINER THIS AM FOR BREAKFAST- DENIES ANY C/O PAIN/DISCOMFORT AT THIS TIME- CALL LIGHT AND PERSONAL BELONGINGS WITH IN REACH- HOURLY ROUNDS IN PLACE R/T SAFETY/NEEDS- ALL NEEDS MET AT THIS TIME-WCTM
[2019-02-11 12:00] VITALS: BP 110/60
[2019-02-11 12:09] LABS: CALCIUM 10.2 mg/dL (8.5-10.1); MAGNESIUM 1.1 mg/dL (1.8-2.4)
[2019-02-11 16:00] VITALS: BP 128/75
[2019-02-11 20:00] VITALS: BP 125/77
[2019-02-12 00:34] VITALS: BP 127/79
[2019-02-12 04:11] VITALS: BP 140/91
[2019-02-12 06:19] LABS: CREATININE 0.8 mg/dL (0.6-1.3); MAGNESIUM 1.7 mg/dL (1.8-2.4); POTASSIUM 3.8 mmol/L (3.5-5.1)
--- NOTE | 2019-02-12 07:28 | NUR ---
ASSUMED CARE OF PT AFTER REPORT AT 1930. PT A&OX4. VSS. PHYSICAL ASSESSMENT COMPLETED AND CHARTED. PT ON O2 AT 4L NC. PT TRACING AFIB BBB ON TELE. PT UPSTANDBY TO BSC. PT DENIES ANY PAIN OR DISCOMFORT. PT ABLE TO SLEEP WELL ON BED. CALL LIGHT WITHIN REACH.
[2019-02-12 07:35] VITALS: BP 109/62
--- NOTE | 2019-02-12 09:04 | NUR ---
ASSUMED CARE OF PT THIS AM AROUND 0715- KNITTER HELPER IN PLACE ORDERED, TRACING A-FIB/RATE CONTROLLED- UPON ASSESSMENT PT NOTED TO BE RESTING IN BED SIDE RECLINER- PT A&O X4- CONTINENT OF BOWEL AND BLADDER- COURSE LUNG SOUNDS NOTED WITH WET COUGH- VSS, O2 SAT 94% ON 4L VIA NC- ABD SOFT/ROUND/NON-TENDER, BS X4 QUADS- LAST BM REPORTED THIS AM- IV NOTED TO LEFT FA INTACT AND SL- IV MAG X1 GIVEN THIS AM WITH REDRAW TO FOLLOW R/T MG OF 1.7- FAIR PO INTAKE NOTED THIS AM WITH BREAKFAST, BS MONITORED ORDERED AND CONTROLLED PER ORAL MEDICATIONS- PT DENIES AND C/O PAIN/DISCOMFORT AT THIS TIME- CALL LIGHT AND PERSONAL BELONGINGS WITH IN REACH-PT MAKES NEEDS KNOWN- ALL NEEDS MET AT THIS TIME-WCTM
[2019-02-12 12:00] VITALS: BP 106/63
[2019-02-12 16:00] VITALS: BP 102/54
[2019-02-12 20:00] VITALS: BP 110/68
[2019-02-13] VITALS: BP 127/70
[2019-02-13 04:00] VITALS: BP 143/64
--- NOTE | 2019-02-13 04:43 | NUR ---
ASSUMED CARE OF PT AFTER REPORT AT 1930. PT A&OX4. VSS. PHYSICAL ASSESSMENT COMPLETED AND CHARTED. PT ON O2 AT 3L NC. PT TRACING AFIB/BBB ON TELE. PT UPSTANDBY TO BSC. PT ABLE TO SLEEP WELL ON BED. CALL LIGHT WITHIN REACH.
[2019-02-13 05:17] LABS: CALCIUM 9.2 mg/dL (8.5-10.1); CREATININE 0.9 mg/dL (0.6-1.3); MAGNESIUM 1.6 mg/dL (1.8-2.4); POTASSIUM 4.1 mmol/L (3.5-5.1)
[2019-02-13 07:33] VITALS: BP 117/74
--- NOTE | 2019-02-13 08:43 | NUR ---
Continue to await insurance auth for acute rehab.
--- NOTE | 2019-02-13 09:02 | NUR ---
ASSUMED CARE OF PT THIS AM AROUND 0715- FLIGHT ATTENDANT IN PLACE ORDERED, TRACING A-FIB/RATE CONTROLLED- UPON ASSESSMENT PT NOTED TO BE RESTING IN BED SIDE CHAIR- PT A&O X4- CONTINENT OF B/B- SBA WITH RW FOR TRANSFERS- COURSE LUNG SOUNDS WITH WET COUGH NOTED- DYSPNEA NOTED ON EXERTION- VSS, O2 SAT 94% ON 3L VIA NC- ABD SOFT/ROUND/NON-TENDER, BS X4 QUADS- LAST BM REPORTED 02/12/19- IV NOTED TO LEFT FA INTACT AND SL- MG REPLACED PER PROTOCOL, REDRAW TO FOLLOW- ISOLATION IN PLACE AND MAINTAINED R/T FLU- BS MONITORED ORDERED, CONTROLLED PER ORAL MEDICATIONS- PT DENIES ANY C/O PAIN/DISCOMFORT AT THIS TIME- CALL LIGHT AND PESONAL BELONGINGS WITH IN REACH- HOURLY ROUNDS IN PLACE R/T SAFETY/NEEDS- ALL NEEDS MET AT THIS TIME-WCTM
[2019-02-13 12:13] VITALS: BP 125/62
--- NOTE | 2019-02-13 13:49 | NUR ---
Nutrition: Pt admitted with flu A. H/o DM, cognitive impairment. Seen for LOS. Awaiting rehab. BG 115, albumin 3.4. Fluid restriction, Na restriction. Wt: 172#. Appears at low nutrition risk as long as pt continues to eat well.
[2019-02-13 18:31] VITALS: BP 107/58
[2019-02-13 20:00] VITALS: BP 114/74
[2019-02-14] VITALS: BP 120/70
[2019-02-14 04:00] VITALS: BP 105/58
--- NOTE | 2019-02-14 05:08 | NUR ---
ASSUMED PT CARE AT 1930. NURSING ASSESSMENT COMPLETED AT START OF SHIFT.AFIB THIS SHIFT. PT C/O INDIGESTION X2 THIS SHIFT. MYLANTA GIVEN PRN. PT DENIES CHEST PAIN. HIGH FALL PRECAUTIONS IN PLACE. HOURLY ROUNDING COMPLETED. CALL LIGHT WITHIN REACH.
[2019-02-14 08:00] VITALS: BP 120/75
[2019-02-14 11:30] VITALS: BP 125/73
--- NOTE | 2019-02-14 11:46 | NUR ---
CONFIRMED WITH DIANA/INTAKE AT [facility] THAT THEY RECEIVED REFERRAL AND IS HAVING COME OVER TO ACCESS THE PATIENT FOR PLACEMENT.
--- NOTE | 2019-02-14 13:39 | NUR ---
CM FAXED ORDER, FACESHEET, D/C SUMMARY AND TESTING RESULTS TO RHETT [place] AT [phone]. CM SPK W/PT'S DTR, JESSE LEIVA PT BEING D/C TO [facility]/HH.
--- NOTE | 2019-02-14 13:52 | EKG ---
[place] [address] ELECTROCARDIOGRAM REPORT Name: TRA PARKER Room: [address] ADM IN M.R.#: [id number] Admission: 02/04/19 Attend Phys: Chaparrita Miranda Discharge: Date of : [birth year] Report #: [id number] THIS REPORT FOR: //name// [facility] Test Date: 2019-02-14 Test Time: 00:38:47 Pat Name: TRA PARKER Department: Room: [address] Gender: F Central Office Repairer: HARLAN : 1930 Requested By: Pro Kiser Order Number: [id number] MD: Khris Bunn Measurements Intervals [place] Rate: 84 P: OR: QRS: 29 QRSD: 133 T: -44 QT: 402 QTc: 476 Interpretive Statements Atrial fibrillation Right bundle branch block Compared to ECG 02/04/2019 19:59:05 rate has slowed Electronically Signed On 02-14-2019 13:52:18 VAMP MAKER by Khris Bunn [email or web address] <ELECTRONICALLY SIGNED> By: Khris Bunn MD, [facility] 02/14/19 1352 0038 0038 Khris Bunn MD, [facility] /EPI
[2019-02-14] MEDS ORDERED: APAP650 PO (13:59)
--- NOTE | 2019-02-14 14:30 | NUR ---
PT CHANGED HER MIND AND WOULD LIKE TO GO TO SNF. CM NOTIFIED CHIKIS FROM [place]; [phone]. AWAITING INSUR AUTH. PT DTR CHINMAY NOTIFIED OF THE CHANGE; [phone]. CHINMAY PREFERS HER MOTHER GOEST TO SNF. CM CONTACTED SLEEP CARE, JOYCE Morales/ [facility], TO CANCEL O2 ORDER; [phone]
--- NOTE | 2019-02-14 14:46 | NUR ---
FAXED REFERRAL TO [facility]. CONFIRMED WITH PETR/INTAKE THAT THEY RECEIVED. PATIENT AND DAUGHTER HAVE DECIDED ON SNF INSTEAD. CANCELLED HH.
[2019-02-14 16:00] VITALS: BP 112/64
[2019-02-14 19:50] VITALS: BP 104/56
[2019-02-15] VITALS: BP 122/69
[2019-02-15 04:00] VITALS: BP 122/53
--- NOTE | 2019-02-15 05:25 | NUR ---
PATIENT HAVING C/O DIARRHEA THIS SHIFT. HAD TWO EPISODES. ALSO C/O INDIGESTION, RELIEVED WITH MYLANTA. PATIENT DENIES PAIN AND DISCOMFORT. POSSIBLE DISCHARGE TODAY TO SNF. CALL LIGHT WITHIN REACH
[2019-02-15 08:00] VITALS: BP 122/71
--- NOTE | 2019-02-15 09:00 | NUR ---
SPOKE TO CHIKIS AT [facility]. STILL AWAITING INSURANCE AUTH. EXPECT TO HAVE IT TODAY. DR VILLA AND NURSE AWARE
[2019-02-15 11:30] VITALS: BP 112/67
--- NOTE | 2019-02-15 16:10 | NUR ---
RECEIVED REPORT. ASSUMED CARE OF PT AROUND 0730. PT A&O X4. VSS. METAL ROLLING MILL OPERATOR IN PLACE TRACING AFIB WITH NO CHANGES. AM ASSESSMENT AND VITALS COMPLETED CHARTED. PT DENIES PAIN OR DISCOMFORT. PT ANXIOUS TO DISCHARGE. MEDS PER EMAR. APPETITE GOOD. UP TO BEDSIDE COMMODE WITH SBA. DISCHARGE ORDERS RECEIVED FOR PT TO GO TO [facility]. DISCHARGE COMPLETED DOCUMENTED. IV AND METAL ROLLING MILL OPERATOR REMOVED. ALL BELONGINGS GATHERED AND LEFT WITH PT. PT LEFT IN WHEELCHAIR WITH TRANSPORTER AROUND 1610. PACKET GIVEN TO TRANSPORTER FOR FACILITY. REPORT CALLED TO [facility], SPOKE TO KELSY.
== END 2019-02-15 16:10 | DRG 291 ==
LOC: M.ERS 19:56 → M.TBA-ER 22:25 → M.2W 22:25
PROVIDERS: Emergency Medicine Emergency Medical Services; Family Medicine; Internal Medicine; ADMIT Internal Medicine
PROC: 5A09357 Assistance with Respiratory Ventilation, Less than 24 Consecutive Hours, Continuous Positive Airway Pressure (ICD-10-PCS; principal; 2019-02-05)
PROC: 5A09357 Assistance with Respiratory Ventilation, Less than 24 Consecutive Hours, Continuous Positive Airway Pressure (ICD-10-PCS; 2019-02-10)
PROC: 5A09357 Assistance with Respiratory Ventilation, Less than 24 Consecutive Hours, Continuous Positive Airway Pressure (ICD-10-PCS; 2019-02-11)
PROC: 5A09357 Assistance with Respiratory Ventilation, Less than 24 Consecutive Hours, Continuous Positive Airway Pressure (ICD-10-PCS; 2019-02-12)
DX: I11.0 Hypertensive heart disease with heart failure (principal); I50.31 Acute diastolic (congestive) heart failure; J96.01 Acute respiratory failure with hypoxia; I48.21 Permanent atrial fibrillation; D68.59 Other primary thrombophilia; E11.9 Type 2 diabetes mellitus without complications; I69.322 Dysarthria following cerebral infarction; J10.1 Influenza due to other identified influenza virus with other respiratory manifestations; I27.20 Pulmonary hypertension, unspecified; R56.9 Unspecified convulsions; G31.84 Mild cognitive impairment of uncertain or unknown etiology; E53.8 Deficiency of other specified B group vitamins; Z79.01 Long term (current) use of anticoagulants; Z79.82 Long term (current) use of aspirin; Z79.84 Long term (current) use of oral hypoglycemic drugs; Z79.899 Other long term (current) drug therapy